=== PATIENT | male | born 1970 | race Caucasian/White ===

== ENCOUNTER 2016-07-20 07:48 | Day surgery (SDC) | payer OTHER ==
[~2016-07-20] VITALS: Ht 193 cm; Wt 96.0 kg
[~2016-07-20 07:48] MED LIST: 0.9% Sodium Chloride 1,000 ML IV SCH; OMEP40CA36 PO; OXYC5CAP4 PO; Sodium Chloride LOK Flush 10 mL Syringe IV PRN; fentaNYL-PF 50 mCg/mL 2 mL Inj IVPUSH PRN
[2016-07-20 08:07] VITALS: BP 133/86; PULSE 78; RESP 16; O2SAT 97
[2016-07-20 09:00] VITALS: BP 128/83; PULSE 82; RESP 16; O2SAT 94
[2016-07-20 09:10] VITALS: BP 136/83; PULSE 78; RESP 16; O2SAT 95
--- NOTE | 2016-07-20 09:18 | ENDO ---
[address] [address] ENDOSCOPY PROCEDURE PATIENT: TATI INFANTE : 1970 MR#: [id number] ADMIT: 07/20/2016 JOB ID: [id number] DATE OF SERVICE: 07/20/2016 PROCEDURE PERFORMED: Esophagogastroduodenoscopy. INDICATION: Dysphagia. ASA CLASSIFICATION: The patient's ASA classification is I. MALLAMPATI SCORE: Mallampati score is 2. MEDICATIONS: 1. Versed 7 mg. 2. Fentanyl 150 mcg. INSTRUMENT USED: [id number]. PROCEDURE DETAILS: After informed consent was obtained, the patient was brought into the GI suite, where he was placed on oxygen via nasal cannula and monitored with continuous pulse oximeter, telemetry, and blood pressure monitoring. A time-out was performed. Then, he was placed in the left lateral decubitus position, and medications were administered for sedation. A bite block was placed. A standard EGD scope was inserted through the bite block and advanced under direct visualization to the second portion of the duodenum without difficulty. FINDINGS: 1. Normal appearing duodenal bulb, first and second portions. 2. Normal appearing pylorus. In the antrum and body of stomach mild erythema was noted suggestive of mild gastritis. Multiple random biopsies were obtained. 3. Retroflexed views in the gastric body revealed normal appearing cardia and fundus, and a small hiatal hernia was appreciated. 4. The diaphragmatic hiatus was at approximately 46 cm and the GE junction was at 45 cm. 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 Multiple biopsies were obtained. 5. The remainder of the esophagus otherwise unremarkable. Multiple random biopsies were obtained in the mid esophagus to evaluate the patient's complaint of dysphagia. IMPRESSION: 1. Mild gastritis. 2. Small hiatal hernia. 3. Irregular gastroesophageal junction. RECOMMENDATIONS: Continue PPI daily. Smoking cessation encouraged. COMPLICATIONS: None. ESTIMATED BLOOD LOSS: Less than 5 mL.
--- NOTE | 2016-07-21 14:53 | PATH ---
SURGICAL PATHOLOGY Attending Physician:Pennie Anderson CASE STATUS: Signed Out PATIENT NAME: TATI INFANTE PID: [id number] : 1970 DATE COLLECTED:07/20/2016 16:56 SPECIMEN: 1: Gastric, Biopsy 2: Esophagus, Biopsy 3: Esophagus, Biopsy CLINICAL HISTORY: A: GASTRIC BIOPSY B: DISTAL ESOPHAGEAL C: MID ESOPHAGEAL FINAL DIAGNOSIS: 1.GASTRIC BIOPSY: SUPERFICIAL MUCOSAL HYPEREMIA WITHOUT ASSOCIATED SIGNIFICANT INFLAMMATION INVOLVING FUNDIC MUCOSA. Negative for evidence of Helicobacter. Negative for intestinal metaplasia. Negative for dysplasia and malignancy. 2.DISTAL ESOPHAGUS BIOPSY: FRAGMENTS OF SQUAMOUS MUCOSA AND GASTRIC CARDIA-TYPE MUCOSA WITH CHRONIC INFLAMMATION AND REACTIVE EPITHELIAL CHANGES. Negative for specialized metaplasia of Solorio' s-type esophagus. Negative for dysplasia and malignancy. Scattered eosinophils present within squamous epithelium consistent with changes of chronic reflux. 3.MID ESOPHAGUS BIOPSY: FRAGMENTS OF SQUAMOUS EPITHELIUM WITH MILD NONSPECIFIC REACTIVE CHANGES. Negative for dysplasia and malignancy. Eosinophils are not increased. ICD10 code K21.0 GROSS DESCRIPTION: The specimens are received in formalin, labeled with the patient's name, and sublabeled as the following: (1) gastric; (2) distal esophagus; (3) mid esophagus. (1) The specimen consists of multiple fragments of licea-white semitranslucent rubbery glistening tissue (0.6 x 0.3 x 0.1 cm in aggregate). Section code: (1A) tissue. Specimen entirely submitted. (2) The specimen consists of multiple fragments of licea-white semitranslucent rubbery glistening tissue (0.5 x 0.3 x 0.1 cm in aggregate). Section code: (2A) tissue. Specimen entirely submitted. (3) The specimen consists of multiple fragments of lucero-white translucent glistening tissue (0.6 x 0.5 x 0.2 cm in aggregate). Section code: (3A) tissue. Specimen entirely submitted. 07/20/16 JM MICRO DESCRIPTION: See diagnosis. ICD-9 CODES: CPT CODES: 1: 04602 2: 61528 3: 07041 Electronically Signed Out Son Alarcon MD [facility] Pathology [facility] [address] [place] [address] Technical component performed at [facility], [address], [place], [address]
== END 2016-07-20 23:59 | disposition home or self-care (01) ==
LOC: END 07:48
PROVIDERS: ATTEND Internal Medicine Gastroenterology
DX: K21.0 Gastro-esophageal reflux disease with esophagitis (principal); K29.70 Gastritis, unspecified, without bleeding; K44.9 Diaphragmatic hernia without obstruction or gangrene; B19.20 Unspecified viral hepatitis C without hepatic coma; F17.210 Nicotine dependence, cigarettes, uncomplicated
CPT/HCPCS: 43239; G0500; J2250; J7030